=== PATIENT | female | born 1940 | race Caucasian/White ===

== ENCOUNTER 2019-04-24 14:37 | Emergency (ER) | payer MEDICARE ==
[2019-04-24] MEDS ORDERED: HYDROcodone 7.5MG/APAP 325MG 1 EA TAB PO ONE (15:01)
[2019-04-24] MEDS ORDERED: SPIRONOLACTONE 25 MG TAB PO ONE (15:01)
--- NOTE | 2019-04-24 15:41 | CT ---
EXAM: CT Head without Contrast HISTORY: Headache uncontrolled , htn 1 week COMPARISON: None. TECHNIQUE: Head/brain axial images acquired without contrast. Coronal and sagittal reformats created. Exam performed according to departmental dose-optimization program which includes automated exposure control, adjustment of mA and/or kV according to patient size, and/or use of iterative reconstruction technique. FINDINGS: No midline shift, mass effect, intracranial hemorrhage, or hydrocephalus. Mild hypodense periventricular cerebral white matter abnormality. CSF spaces appear overall mildly enlarged likely representing age-appropriate cerebral volume loss. Cavum septum pellucidum (normal variant). Paranasal sinuses and mastoid air cells clear. No skull fracture. Calcified atherosclerotic intracranial internal carotid arteries. IMPRESSION: Mild cerebral white matter disease most likely represents chronic small vessel ischemia. Electronically signed by: Taurus Hanson MD 04/24/2019 3:40 PM [facility]
[2019-04-24] MEDS ORDERED: NIFEdipine 10 MG CAP PO ONE (15:44)
--- NOTE | 2019-04-24 18:07 | ED.PDOC ---
History of Present Illness - General Chief Complaint: Blood Pressure Problem Stated Complaint: elevated BP,SCHULTZ Time Seen by Provider: 04/24/19 15:00 Source: patient Exam Limitations: no limitations - History of Present Illness Initial Comments: the patient's 78-year-old female presenting to the emergency room secondary to uncontrolled hypertension. It sounds like her blood pressures have been markedly elevated for several weeks but today she had a significant headache related with it. Blood pressures have gotten up in the 230s on the systolic end. It looks like they've been running in the low 200s for the last 2 weeks. The last time she knew she had her blood pressure under control is probably better than a year ago. No focal neurological deficits. No trauma. No vision changes. Timing/Duration: unsure Severity: moderate Improving Factors: nothing Worsening Factors: nothing Associated Symptoms: headaches Allergies/Adverse Reactions: Allergies Penicillins Allergy (Verified 04/24/19 14:57) Sulfa Antibiotics Allergy (Verified 04/24/19 15:08) Coconut Oil Adverse Reaction (Verified 04/24/19 15:08) Home Medications: Ambulatory Orders Cetirizine HCl [ZyrTEC] 10 mg PO DAILY 04/24/19 Clonidine HCl [Clonidine Hydrochloride] 0.2 mg PO BID 04/24/19 Metoprolol Succinate [Metoprolol Succinate ER] 50 mg PO BID 04/24/19 NIFEdipine XL [Procardia Xl] 30 mg PO QDAC #30 tab 04/24/19 Review of Systems - Review of Systems Constitutional: States: no symptoms reported EENTM: States: no symptoms reported Respiratory: States: no symptoms reported Cardiology: States: no symptoms reported Gastrointestinal/Abdominal: States: no symptoms reported Genitourinary: States: no symptoms reported Musculoskeletal: States: no symptoms reported Skin: States: no symptoms reported Neurological: States: headache Endocrine: States: no symptoms reported All other Systems: No Change from Baseline Past Medical History (General) - Patient Medical History Hx Stroke: No Hx Congestive Heart Failure: No Hx Hypertension: Yes Hx Diabetes: No Surgical History: no surgical history - Vaccination History Hx Influenza Vaccination: No Hx Pneumococcal Vaccination: Yes - Social History Hx Tobacco Use: No Family Medical History - Family History Mother Family History: Unknown Living Status: Unknown Physical Exam - Physical Exam General Appearance: Alert, Anxious Eye Exam: bilateral normal Ears, Nose, Throat: hearing grossly normal, normal ENT inspection Neck: full range of motion, supple Respiratory: lungs clear, normal breath sounds, no respiratory distress, no accessory muscle use Cardiovascular/Chest: normal peripheral pulses, regular rate, rhythm, no edema Peripheral Pulses: radial,right: 2+, radial,left: 2+, dorsalis pedis,right: 2+, dorsalis pedis,left: 2+ Gastrointestinal/Abdominal: non tender, soft Rectal Exam: deferred Back Exam: no CVA tenderness, no vertebral tenderness Extremity: normal range of motion, non-tender, normal inspection, no pedal edema, normal capillary refill 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 It appears the patient's blood pressures have not been controlled for some time. The patient actually had a very marked response to a dose of Procardia and spironolactone here. For now the patient is going to continue her clonidine and her metoprolol as previous. She is going to be started on once a day Procardia for the hypertension. She does need to follow her blood pressures several times a day when she is relaxed. She is to follow back up with her primary care doctor later this week as well with her blood pressure record. It sounds like she needs to see her primary care doctor for her routine health maintenance as is. Blood pressures are within normal limits currently. Headache has improved. CT scan of the head showed no acute intracranial pathology. ER warnings were given for any worsening. giorgio spaulding [id number] - Results/Orders Results/Orders: head CT shows no acute changes. - EKG/XRAY/CT CT Ordered: Yes Departure - Departure Clinical Impression: Hypertensive urgency Headache Qualifiers: Headache type: unspecified Headache chronicity pattern: acute headache Intractability: not intractable Qualified Code(s): R51 - Headache Disposition: Discharge to Home or Self Care Condition: Fair Departure Forms: ED Discharge - Pt. Copy, Patient Portal Self Enrollment Diet: low salt diet Activity: increase activity as tolerated Referrals: MEJIA MCCRACKEN [Primary Care Provider] - 1-5 Days Prescriptions: NIFEdipine XL [Procardia Xl] 30 mg PO QDAC #30 tab Home Medications: Ambulatory Orders Cetirizine HCl [ZyrTEC] 10 mg PO DAILY 04/24/19 Clonidine HCl [Clonidine Hydrochloride] 0.2 mg PO BID 04/24/19 Metoprolol Succinate [Metoprolol Succinate ER] 50 mg PO BID 04/24/19 NIFEdipine XL [Procardia Xl] 30 mg PO QDAC #30 tab 04/24/19 Additional Instructions: the patient is a 78-year-old female presenting with hypertensive urgency with associated headache. It appears the patient's blood pressures have not been controlled for some time. The patient actually had a very marked response to a dose of Procardia and spironolactone here. For now the patient is going to continue her clonidine and her metoprolol as previous. She is going to be started on once a day Procardia for the hypertension. She does need to follow her blood pressures several times a day when she is relaxed. She is to follow back up with her primary care doctor later this week as well with her blood pressure record. It sounds like she needs to see her primary care doctor for her routine health maintenance as is. Blood pressures are within normal limits currently. Headache has improved. CT scan of the head showed no acute intracranial pathology. ER warnings were given for any worsening.
[2019-04-24 18:19] VITALS: BP 148/100; TEMP 98.4; O2SAT 94
== END 2019-04-24 18:19 | disposition home or self-care (01) ==
LOC: ER 14:37
DX: I16.0 Hypertensive urgency (principal); R51 Headache; Z79.899 Other long term (current) drug therapy; Z88.0 Allergy status to penicillin; Z88.2 Allergy status to sulfonamides